=== PATIENT | female | born 1995 | race Caucasian/White ===

== ENCOUNTER 2019-12-23 07:47 | Emergency (ER) | payer OTHER ==
[2019-12-23 07:59] VITALS: BP 141/59
--- NOTE | 2019-12-23 08:34 | ER Document Report ---
ED General - General Chief Complaint: Pain All Over Stated Complaint: BACK/FEET PAIN Time Seen by Provider: 12/23/19 08:27 Notes: 24-year-old female presents with pain all over her body specifically hands and feet and hips, has been going on for 4 years since her first child was born but she is never seen a doctor to get a diagnosis. It worsened in the last couple of days to where she says that a friend of a friend "who is trained did not sort of thing" has to "pop my hips backend" she is able to walk, has no joint swelling rashes or other rheumatologic symptoms. She is not been tested or evaluated for myofascial pain fibromyalgia or rheumatologic disease. - Related Data Allergies/Adverse Reactions: No Known Allergies Allergy (Verified 12/23/19 08:07) Past Medical History - General Information source: Patient - Social History Smoking Status: Never Smoker Chew tobacco use (# tins/day): No Frequency of alcohol use: None Drug Abuse: None Family History: None Patient has homicidal ideation: No Pulmonary Medical History: Reports: Hx Asthma Past Surgical History: Reports: Hx Section - x2, Hx Orthopedic Surgery - right arm Review of Systems - Review of Systems Notes: REVIEW OF SYSTEMS GEN: Denies fever, chills, weight loss ENT: Denies sore throat, nasal discharge, ear pain EYES: Denies blurry vision, eye pain, discharge CV: Denies chest pain, palpitations, edema RESP: Denies cough, shortness of breath, wheezing GI: Denies abdominal pain, nausea, vomiting, diarrhea MSK: Joint pain all over SKIN: Denies rash, skin lesions LYMPH: Denies swollen glands/lymph nodes NEURO: Denies headache, focal weakness or numbness, dizziness PSYCH: Denies depression, suicidal or homicidal ideation PHYSICAL EXAMINATION General: No acute distress, well-nourished Head: Atraumatic, normocephalic ENT: Mouth normal, oropharynx moist, no exudates or tonsillar enlargement Eyes: Conjunctiva normal, pupils equal, lids normal Neck: No JVD, supple, no guarding CVS: Normal rate, regular rhythm, no murmurs Resp: No resp distress, equal and normal breath sounds bilaterally GI: Nondistended, soft, no tenderness to palpation, no rebound or guarding Ext: No deformities, no edema, normal range of motion in upper and lower ext Back: No CVA or midline TTP Skin: No rash, warm Lymphatic: No lymphadeopathy noted Neuro: Awake, alert. Face symmetric. GCS 15. Physical Exam - Vital signs Vitals: Temp Pulse Resp BP Pulse Ox 98.9 F 84 18 141/59 H 100 12/23/19 07:57 12/23/19 07:57 12/23/19 07:57 12/23/19 07:57 12/23/19 07:57 Course - Re-evaluation Re-evalutation: 12/23/19 08:34 Patient presents with muscle and joint pain likely fibromyalgia or myofascial pain syndrome She has no acute arthralgias and the chronicity of this argues that it needs to be evaluated and managed by primary care doctor and physical therapist She is no acute emergent symptoms, no abnormal vital signs and no further work- up in the ED is indicated. Referred to primary care started on naproxen. I have discussed with the patient there likely diagnosis, aftercare plan, follow-up plans and my usual and customary return precautions. They verbalized understanding of this. - Vital Signs Vital signs: Temp Pulse Resp BP Pulse Ox 98.9 F 84 18 141/59 H 100 12/23/19 08:08 12/23/19 07:57 12/23/19 07:57 12/23/19 07:57 12/23/19 07:57 Discharge - Discharge Clinical Impression: Generalized pain Condition: Good Disposition: HOME, SELF-CARE Instructions: Arthralgia ([facility]) Prescriptions: Naproxen Sodium [Naproxen Sodium ER] 500 mg PO BID #60 tablet.sa Referrals: [facility] [Outside] - Follow up as needed
== END 2019-12-23 08:44 | disposition home or self-care (01) ==
LOC: ER 07:47
DX: R52 Pain, unspecified (principal)
CPT/HCPCS: 99283